=== PATIENT | male | born 1980 | race African-American/Black ===

== ENCOUNTER 2018-06-08 16:19 | Emergency (ER) | payer OTHER ==
[~2018-06-08] VITALS: Ht 188 cm; Wt 104.3 kg
--- NOTE | 2018-06-08 16:34 | NUR ---
CATHY WHATLEY AT BEDSIDE FOR MSE.
--- NOTE | 2018-06-08 16:49 | NUR ---
NEMATOLOGY TEACHER AT BEDSIDE.
[2018-06-08 16:59] LABS: BASOPHILS % (AUTO) 0.9 % (0.0-2.0); EOSINOPHILS # (AUTO) 0.1 K/uL (0.0-0.7); EOSINOPHILS % (AUTO) 2.6 % (0.0-7.0); HEMATOCRIT 42.2 % (36.7-47.1); LYMPHOCYTES # (AUTO) 1.9 K/uL (20.0-40.0); LYMPHOCYTES % (AUTO) 43.5 % (20.5-51.5); MEAN CORPUSCULAR HEMOGLOBIN 27.6 uug (23.8-33.4); MEAN CORPUSCULAR HGB CONC 33 g/dL (32.5-36.3); MONOCYTES # (AUTO) 0.5 K/uL (2.0-10.0); MONOCYTES % (AUTO) 10.3 % (0.0-11.0); NEUTROPHILS # (AUTO) 1.9 K/uL (1.8-8.9); NEUTROPHILS % (AUTO) 42.7 % (38.5-71.5); PLATELET COUNT (AUTO) 222 K/uL (152-348); RED BLOOD CELL COUNT(AUTO) 5.08 MIL/uL (4.06-5.63); WHITE BLOOD COUNT (AUTO) 4.5 K/uL (3.6-10.2)
[2018-06-08 17:08] LABS: POTASSIUM 3.9 mmol/L (3.5-5.1)
[2018-06-08 17:14] LABS: BILIRUBIN,DIRECT 0.2 mg/dL (0.0-0.2); BILIRUBIN,TOTAL 1.2 mg/dL (0.2-1.0); TOTAL PROTEIN, SERUM 7.3 g/dL (6.4-8.2)
--- NOTE | 2018-06-08 17:39 | NUR ---
Patient discharged to home in stable conditon. Written and verbal after care instructions given. Patient verbalizes understanding of instructions. ALL BELONGINGS W/ PT. PT SELF-AMBULATED W/O DIFFICULTY.
[2018-06-08 17:40] VITALS: BP 121/69
== END 2018-06-08 17:40 | disposition home or self-care (01) ==
LOC: ER 16:19
DX: S29.012A Strain of muscle and tendon of back wall of thorax, initial encounter (principal); R10.10 Upper abdominal pain, unspecified; Z88.8 Allergy status to other drugs, medicaments and biological substances; X58.XXXA Exposure to other specified factors, initial encounter; Y93.67 Activity, basketball; Y92.89 Other specified places as the place of occurrence of the external cause; Y99.8 Other external cause status
CPT/HCPCS: 36415; 70030-TC; 83690; 85025; 93005; A4663